=== PATIENT | female | born 1960 | race Caucasian/White ===

== ENCOUNTER → 2021-08-31 | Outpatient (CLI) | payer BC | LOC: KOH-I 12:28 | DX: M25.561 Pain in right knee (principal); S83.511A Sprain of anterior cruciate ligament of right knee, initial encounter; S83.241A Other tear of medial meniscus, current injury, right knee, initial encounter; M89.9 Disorder of bone, unspecified; M71.21 Synovial cyst of popliteal space [Baker], right knee; M23.41 Loose body in knee, right knee | CPT/HCPCS: 73721 ==